=== PATIENT | female | born 1965 | race Caucasian/White ===

== ENCOUNTER 2021-02-02 14:13 | Observation (INO) ==
[2021-02-02] MEDS ORDERED: Famotidine IV 10 MG/ML 2 ml VIAL (20 mg) ONE (14:18)
[2021-02-02] MEDS ORDERED: Tranexamic Acid 1,000 MG/10 ML SDV ONE (14:19)
[2021-02-02] MEDS ORDERED: diPHENhydraMINE IV 50 MG/ML 1 ml VIAL (BENADRYL) SLOW PUSH ONE (14:27)
[2021-02-02] MEDS ORDERED: Famotidine IV 10 MG/ML 2 ml VIAL (20 mg) IV SLOW PU ONE (14:27)
[2021-02-02] MEDS ORDERED: methylPREDNISolone 125 mg 2 ML VIAL IV ONE (14:27)
[2021-02-02 15:08] LABS: ABS Eosinophils 0.1 10^3/ul (0-0.6); ABS Lymphocytes 2.6 10^3/ul (1.0-4.8); ABS Monocytes 1.2 10^3/ul (0-0.8); Hematocrit 42 % (35-47); Hemoglobin 13.9 g/dL (12.0-16.0); Lymphocyte % 23.7 %; Mean Corpuscular HGB Conc 34 g/dL (31-36); Mean Corpuscular Hemoglobin 30 pg (27-31); Mean Corpuscular Volume 88 fL (80-97); Mean Platelet Volume 8.6 fL (7.4-10.4); Platelet Count 277 10^3/uL (150-450); Red Blood Count 4.72 10^6 /uL (3.70-4.87); Red Cell Distribution Width 14 % (10-15); White Blood Count 10.9 10^3/uL (3.5-10.8)
[2021-02-02 15:28] LABS: Albumin 4.6 g/dL (3.2-5.2); Albumin/Globulin Ratio 1.6 (1-3); Calcium 9.5 mg/dL (8.6-10.3); Globulin 2.9 g/dL (2-4); Total Bilirubin 0.4 mg/dL (0.2-1.0); Total Protein 7.5 g/dL (6.4-8.9); eGFR CKD-EPI 73.5 (>60)
[2021-02-02] MEDS ORDERED: Ondansetron 4 mg VIAL 2 MG/ML 2 ml VIAL IV PRN (16:45)
[2021-02-02] MEDS ORDERED: CMCS: Meloxicam 7.5 mg TAB (NF) PO PRN (16:53)
[2021-02-03 05:02] LABS: ABS Lymphocytes 0.7 10^3/ul (1.0-4.8); ABS Monocytes 0.6 10^3/ul (0-0.8); ABS Neutrophils 11.8 10^3/ul (1.5-7.7); Hematocrit 41 % (35-47); Hemoglobin 13.3 g/dL (12.0-16.0); Lymphocyte % 5.4 %; Mean Corpuscular HGB Conc 33 g/dL (31-36); Mean Corpuscular Hemoglobin 29 pg (27-31); Mean Corpuscular Volume 90 fL (80-97); Mean Platelet Volume 8.5 fL (7.4-10.4); Platelet Count 250 10^3/uL (150-450); Red Blood Count 4.56 10^6 /uL (3.70-4.87); Red Cell Distribution Width 13 % (10-15); White Blood Count 13.1 10^3/uL (3.5-10.8)
[2021-02-03 05:15] LABS: Blood Urea Nitrogen 19 mg/dL (6-24); CO2 Carbon Dioxide 25 mmol/L (22-32); Calcium 9.4 mg/dL (8.6-10.3); Chloride 107 mmol/L (101-111); Glucose 128 mg/dL (70-100); Sodium 139 mmol/L (135-145); eGFR CKD-EPI 76.5 (>60)
[2021-02-03 05:25] LABS: Anion Gap 7 mmol/L (2-11)
[2021-02-03 13:44] VITALS: BP 161/79
== END 2021-02-03 14:00 | disposition home or self-care (01) ==
LOC: EDHOLD 14:13 → ED 14:13 → MERGE 16:45 → SUATTDRO 16:45 → MED 21:07
PROVIDERS: ADMIT Internal Medicine; ATTEND Hospitalist

== ENCOUNTER 2023-07-19 13:05 | Observation (INO) ==
[~2023-07-19 13:05] MED LIST: Metoclopramide 5 MG/ML VIAL (10 mg) IV PRN; NS 0.45% 1000 ml BAG 1,000 ML IV SCH; Naloxone 0.4 mg VIAL 0.4 mg/ml 1 ml VIAL IV PRN; Ondansetron 4 mg VIAL 2 MG/ML 2 ml VIAL IV PRN
[2023-07-19] MEDS: Lactated Ringers 1000 ml BAG 1,000 ML IV SCH ×2 (13:40→22:03)
[2023-07-19] MEDS ORDERED: ceFAZolin 2 GM in NS PREMIX 2 GM/100 ML BAG IVPB ONE (14:04)
[2023-07-19] MEDS ORDERED: fentaNYL 250 mcg/5 ml 50 MCG/ML 5 ml VIAL (250 MCG) ONE ×2 (14:29→15:41)
[2023-07-19] MEDS ORDERED: Midazolam 2 mg/2 ml VIAL 1 mg/ml 2 ml VIAL (2 mg) ONE (14:29)
[2023-07-19] MEDS ORDERED: Ondansetron 4 mg VIAL 2 MG/ML 2 ml VIAL ONE (14:29)
[2023-07-19] MEDS ORDERED: Dexamethasone IV 4 MG/ML VIAL 1 ml VIAL ONE (14:29)
[2023-07-19] MEDS ORDERED: Lidocaine 2% PF 5 ML VIAL ONE (14:29)
[2023-07-19] MEDS ORDERED: Propofol 10 MG/ML 20 ML BTL ONE (14:29)
[2023-07-19] MEDS ORDERED: fentaNYL 100 mcg/2 ml 50 MCG/ML VIAL ONE (17:06)
[2023-07-19] MEDS: fentaNYL 100 mcg/2 ml 50 MCG/ML VIAL IV PRN (17:07)
[2023-07-19] MEDS ORDERED: ROPIVACAINE 5 MG/ML 30 ML BTL (0.5%) ONE ×2 (17:14→18:01)
[2023-07-19] MEDS ORDERED: Dexmedetomidine 200 mcg/2 ml 2 ml VIAL (200 mcg) ONE (17:15)
[2023-07-19 18:46] LABS: Rapid COVID-19 Molecular Undetected (Undetected)
[2023-07-19] MEDS ORDERED: Morphine 2 MG/ML SYRINGE IV PRN (18:57)
[2023-07-19] MEDS ORDERED: Ondansetron ODT 4 mg TAB 4 MG TAB PO PRN (18:57)
[2023-07-19] MEDS ORDERED: Magnesium Hydroxide LIQ 30 ML UDC PO PRN (18:57)
[2023-07-19] MEDS ORDERED: Ondansetron 4 mg VIAL 2 MG/ML 2 ml VIAL IV PRN (18:57)
[2023-07-19] MEDS ORDERED: Lactulose 30 ml UDC PO PRN (18:57)
[2023-07-19] MEDS: Buffered Lidocaine 1% SYRIN 1 ml INTRADERM ONE (21:26)
[2023-07-19] MEDS: Acetaminophen IV 1 GM/100ML 1,000 MG/100 ML BAG IV ONE (21:26)
[2023-07-19] MEDS: Scopolamine 1 mg/72hr PATCH TRANSDERM ONE (21:26)
[2023-07-19] MEDS: Magnesium Hydroxide LIQ 30 ML UDC PO SCH (21:30)
[2023-07-20 01:34] LABS: Hematocrit 36.3 % (35-45); Hemoglobin 12.3 g/dL (11.5-14.3)
[2023-07-20 06:28] LABS: Mean Platelet Volume 8.1 fL (7.5-11.2); Platelet Count 252 10^3/uL (150-450)
[2023-07-20 06:45] LABS: Calcium 8.7 mg/dL (8.6-10.3); Creatinine, Serum 0.73 mg/dL (0.51-0.95); Potassium 4.2 mmol/L (3.5-5.0); eGFR CKD-EPI 95.9 (>60)
[2023-07-20] MEDS: Vitamin THERAPEUTIC TAB PO SCH (07:49)
[2023-07-20 10:17] VITALS: BP 130/63
== END 2023-07-20 14:10 | disposition home or self-care (01) ==
LOC: OR 13:05 → SSU 13:05
PROVIDERS: ADMIT Orthopaedic Surgery; ATTEND Orthopaedic Surgery